=== PATIENT | female | born 1995 | race Caucasian/White ===

== ENCOUNTER 2019-10-08 15:48 | Emergency (ER) | payer OTHER ==
[~2019-10-08] VITALS: Ht 167.6 cm; Wt 97.1 kg
[2019-10-08 16:28] LABS: Source, Urine Clean Catch
[2019-10-08 16:43] LABS: Blood, Urine 3+ (Neg); Glucose Qualitative, Urine Neg (Neg); Ketones, Urine 4+ (Neg); Leukocyte Esterase, Urine 1+ (Neg); Nitrite, Urine Neg (Neg); Protein, Urine 2+ (Neg); Specific Gravity, Urine 1.025 (1.003-1.022); Urobilinogen, Urine 2+ (Normal)
[2019-10-08 16:53] LABS: Bilirubin, Urine 1+ (Neg)
[2019-10-08 16:54] LABS: Appearance, Urine Cloudy (Clear); Color, Urine Amber (P-Yellow)
[2019-10-08 16:58] LABS: Squamous Epithelial Cells Rare /hpf (Few); White Blood Cells, Urine 0-2 /hpf (0-5)
[2019-10-08 16:59] LABS: Bacteria Few /hpf; Mucus Heavy (0-Heavy)
[2019-10-08] MEDS ORDERED: ONDA4ODT MM (17:55)
[2019-10-20] MEDS ORDERED: Prednisone20 MG PO (17:07)
[2019-10-27] MEDS ORDERED: IBUP800 PO (21:09)
== END 2019-10-08 18:15 | disposition home or self-care (01) ==
LOC: ER 15:48
PROVIDERS: Student in an Organized Health Care Education/Training Program
DX: R11.2 Nausea with vomiting, unspecified (principal)
CPT/HCPCS: 81001; 84703; 87086; 96361; 96374; 99283-25; J2405; J7030

== ENCOUNTER 2019-12-08 15:35 | Emergency (ER) | payer OTHER ==
[~2019-12-08] VITALS: Ht 167.6 cm; Wt 95.2 kg
[~2019-12-08 15:35] MED LIST: IBUP800 PO; ONDA4ODT MM; Prednisone20 MG PO
[2019-12-08 16:40] LABS: Chloride (POC) 106 mmol/L (98-108); Creatinine (POC) 0.6 mg/dL (0.6-1.0); Glucose (ISTAT POC) 89 mg/dL (70-99); Hemoglobin (POC) 14.6 g/dL (12.0-16.0); Potassium (POC) 3.9 mmol/L (3.5-5.5); Sodium (POC) 140 mmol/L (135-148); Total CO2 (POC) 22 mmol/L (21-32)
== END 2019-12-08 17:27 | disposition home or self-care (01) ==
LOC: ER 15:35
DX: E86.0 Dehydration (principal)
CPT/HCPCS: 36415; 80047; 84703; 85014; 96374; 96375; 99283-25; J0780; J1885; J2405; J7030

== ENCOUNTER 2020-01-15 11:48 | Emergency (ER) | payer OTHER ==
[~2020-01-15] VITALS: Ht 167.6 cm; Wt 93.4 kg
[2020-01-15 12:24] LABS: BASOPHILS ABSOLUTE AUTO 0.04 K/mm3 (0.00-0.23); BASOPHILS PERCENT AUTO 1 % (0-2); EOSINOPHILS ABSOLUTE AUTO 0.38 K/mm3 (0.00-0.68); EOSINOPHILS PERCENT AUTO 5 % (0-6); Hematocrit 43.3 % (33.0-51.0); IMMATURE GRAN ABSOLUTE AUTO 0.02 K/mm3 (0.00-0.10); IMMATURE GRAN PERCENT AUTO 0 % (0-1); LYMPHOCYTES ABSOLUTE AUTO 2.74 K/mm3 (0.84-5.20); LYMPHOCYTES PERCENT AUTO 32 % (21-46); MONOCYTES ABSOLUTE AUTO 0.56 K/mm3 (0.16-1.47); MONOCYTES PERCENT AUTO 7 % (4-13); Mean Corpuscular HGB 23.4 pg (26.0-34.0); Mean Corpuscular Volume 78 fL (80-100); Mean Platelet Volume 10.5 fL (9.1-12.4); NEUTROPHILS ABSOLUTE AUTO 4.77 K/mm3 (1.96-9.15); NEUTROPHILS PERCENT AUTO 56 % (41-73); Platelet Count 331 K/mm3 (150-400); RDW Coefficient Variation 17.7 % (11.7-14.2); RDW Standard Deviation 49.9 fL (35.1-46.3); Red Blood Cell Count 5.56 M/mm3 (3.80-5.20); White Blood Cell Count 8.51 K/mm3 (4.00-11.30)
[2020-01-15 12:50] LABS: Alanine Aminotransfer (ALT/SGP 33 U/L (12-78); Albumin, Blood 3.7 g/dL (3.4-5.0); Albumin/Globulin Ratio 0.9 (0.8-1.8); Alk Phos 107 U/L (50-136); Anion Gap 7 mmol/L (6-16); Aspartate Aminotrans (AST/SGOT 30 U/L (12-37); Bilirubin, Total 0.7 mg/dL (0.1-1.0); Blood Urea Nitrogen 11 mg/dL (8-24); Bun/Creatinine Ratio 17.4 (12.0-20.0); CO2, Blood 21 mmol/L (21-32); Calcium, Blood 9.2 mg/dL (8.5-10.1); Chloride, Blood 112 mmol/L (98-108); Creatinine, Blood 0.63 mg/dL (0.40-1.00); Globulin, Blood 4.1 g/dL (2.2-4.0); Glomerular Filtration Rate >60 (60-); Glucose, Blood 91 mg/dL (70-99); Potassium, Blood 3.8 mmol/L (3.5-5.5); Sodium, Blood 140 mmol/L (136-145); Total Protein, Blood 7.8 g/dL (6.4-8.2)
[2020-01-15] MEDS ORDERED: CETI5 (13:40)
[2020-01-15 13:41] LABS: Source, Urine Clean Catch
[2020-01-15] MEDS ORDERED: ALBU90OI INH (13:41)
[2020-01-15 13:45] LABS: Bilirubin, Urine Neg (Neg); Blood, Urine Neg (Neg); Glucose Qualitative, Urine Neg (Neg); Ketones, Urine 3+ (Neg); Leukocyte Esterase, Urine 1+ (Neg); Nitrite, Urine Neg (Neg); Protein, Urine 1+ (Neg); Urobilinogen, Urine NORM (Normal)
[2020-01-15 13:55] LABS: Color, Urine Yellow (P-Yellow)
[2020-01-15 13:56] LABS: Appearance, Urine Hazy (Clear)
[2020-01-15 13:57] LABS: Bacteria Few /hpf; Mucus Mod (0-Heavy); Red Blood Cells, Urine 0-2 /hpf (0-2); Squamous Epithelial Cells Mod /hpf (Few)
[2020-01-15] MEDS ORDERED: CEPH500 PO (14:34)
== END 2020-01-15 16:23 | disposition home or self-care (01) ==
LOC: ER 11:48
PROVIDERS: Emergency Medicine
DX: N39.0 Urinary tract infection, site not specified (principal); Z88.0 Allergy status to penicillin; Z88.8 Allergy status to other drugs, medicaments and biological substances
CPT/HCPCS: 36415; 80053; 81001; 81025; 84703; 85025; 87086; 99284

== ENCOUNTER 2020-01-17 02:59 | Emergency (ER) | payer OTHER ==
[~2020-01-17] VITALS: Ht 167.6 cm; Wt 93.4 kg
[~2020-01-17 02:59] MED LIST changes: +ALBU90OI INH; +CEPH500 PO; +CETI5
== END 2020-01-17 03:42 | disposition home or self-care (01) ==
LOC: ER 02:59
DX: T78.1XXA Other adverse food reactions, not elsewhere classified, initial encounter (principal); R22.1 Localized swelling, mass and lump, neck; J45.909 Unspecified asthma, uncomplicated; Z91.018 Allergy to other foods; Z88.0 Allergy status to penicillin; Z88.8 Allergy status to other drugs, medicaments and biological substances; Z88.5 Allergy status to narcotic agent; Z79.899 Other long term (current) drug therapy
CPT/HCPCS: 99283